=== PATIENT | male | born 1995 | race Two or more races ===

== ENCOUNTER 2024-08-08 19:56 | Emergency (ER) | payer OTHER ==
[~2024-08-08] VITALS: Ht 188 cm; Wt 136.1 kg
[2024-08-08 20:49] VITALS: BP 145/86; TEMP 99.9; O2SAT 98
== END 2024-08-08 22:04 | disposition home or self-care (01) ==
LOC: ER 20:07
DX: J06.9 Acute upper respiratory infection, unspecified (principal); I10 Essential (primary) hypertension